=== PATIENT | female | born 1995 | race Two or more races ===

== ENCOUNTER 2022-04-14 01:06 | Inpatient (IN) | payer OTHER ==
[~2022-04-14] VITALS: Ht 157.5 cm; Wt 71.7 kg
[2022-04-14] MEDS ORDERED: PRENATAL TABLE1 EAC1 (02:06)
[2022-04-14] MEDS ORDERED: VALACYCLOVIR500 MG (02:07)
[2022-04-14] MEDS ORDERED: IRON240 MG (02:07)
[2022-04-16] MEDS ORDERED: NAPR500T14 PO (09:07)
== END 2022-04-16 11:39 | disposition home or self-care (01) | DRG 807 ==
LOC: OB/GYN 01:06 → LDR 01:06 → OB/GYN 10:31
PROVIDERS: ADMIT Obstetrics & Gynecology; ATTEND Obstetrics & Gynecology
PROC: 10E0XZZ Delivery of Products of Conception, External Approach (ICD-10-PCS; principal; 2022-04-14)
PROC: 0KQM0ZZ Repair Perineum Muscle, Open Approach (ICD-10-PCS; 2022-04-14)
PROC: 4A1HXCZ Monitoring of Products of Conception, Cardiac Rate, External Approach (ICD-10-PCS; 2022-04-14)
DX: O70.1 Second degree perineal laceration during delivery (principal); Z37.0 Single live birth; Z3A.38 38 weeks gestation of pregnancy; Z20.822 Contact with and (suspected) exposure to COVID-19